=== PATIENT | female | born 1940 | race Caucasian/White ===

== ENCOUNTER 2021-03-11 06:59 | Observation (INO) | payer MEDICARE ==
[~2021-03-11] VITALS: Ht 167.6 cm; Wt 130.2 kg
[2021-03-11 07:25] LABS: BASOPHILS # (AUTO) 0.1 (0.0-0.1); BASOPHILS % 0.9 % (0.0-1.0); EOSINOPHILS # (AUTO) 0.2 (0.0-0.4); LYMPHOCYTES # (AUTO) 1.6 (1.0-3.2); LYMPHOCYTES % 27.1 % (18.0-39.1); MEAN CORPUSCULAR HEMOGLOBIN 25.8 pg (28-32); MEAN CORPUSCULAR HGB CONC 29.2 g/dL (31-35); MEAN CORPUSCULAR VOLUME 88.3 fL (81-99); MONOCYTES # (AUTO) 0.5 (0.2-0.8); NEUTROPHILS # (AUTO) 3.4 (2.1-6.9); NEUTROPHILS % 59.7 % (38.7-80.0); PLATELET COUNT 364 x10e3/uL (140-360); RED BLOOD COUNT 2.56 x10e6/uL (3.6-5.1); RED CELL DISTRIBUTION WIDTH 14.3 % (11.7-14.4)
[2021-03-11 07:28] LABS: HEMATOCRIT 22.6 % (34.2-44.1); HEMOGLOBIN 6.6 g/dL (12.0-16.0)
[2021-03-11 07:42] LABS: INR 0.89; PROTHROMBIN TIME 12.8 seconds (11.9-14.5)
[2021-03-11 07:54] LABS: ALBUMIN 3.7 g/dL (3.5-5.0); ALBUMIN/GLOBULIN RATIO 1.4 (0.8-2.0); ANION GAP 11.9 mmol/L (8-16); CALCIUM 8.4 mg/dL (8.4-10.2); CREATININE, SERUM 0.93 mg/dL (0.57-1.11); POTASSIUM 3.9 mmol/L (3.5-5.1)
[2021-03-11] MEDS ORDERED: SODIUM CHLORIDE 0.9% 250ML 250 ML IV ONE (08:15)
[2021-03-11] MEDS ORDERED: SODIUM CHLORIDE 0.9% 1000ML 1,000 ML IV SCH (08:15)
[2021-03-11] MEDS ORDERED: ONDANSETRON HCL INJ 2MG/ML 2ML 2 MG/ML VIAL IV PRN (08:15)
[2021-03-11] MEDS ORDERED: Morphine 4mg Syringe 4 MG/ML INJ IV PRN (08:15)
[2021-03-11 09:46] VITALS: BP 149/74
[2021-03-11 09:58] LABS: FERRITIN 5.2 ng/mL (4.63-204.00)
[2021-03-11 10:46] LABS: BAND NEUTROPHILS % (MANUAL) 1 %; EOSINOPHILS % (MANUAL) 2 % (0-7); LYMPHOCYTES % (MANUAL) 24 % (19-48); MONOCYTES % (MANUAL) 3 % (3.4-9.0); NEUTROPHILS % (MANUAL) 70 % (40-74)
[2021-03-11 10:47] LABS: PLATELET ESTIMATE ADEQUATE; PLATELET MORPHOLOGY COMMENT NORMAL; RBC MORPHOLOGY COMMENT NORMAL
[2021-03-11] MEDS ORDERED: LOSARTAN POTASS25 MG PO (11:18)
[2021-03-11] MEDS: IRON SUCROSE 100 MG in SODIUM CHLORIDE 0.9% 100 ML 100 ML IV SCH (11:18)
[2021-03-11] MEDS ORDERED: ALPRAZOLAM 0.25 MG TAB PO ONE (11:30)
[2021-03-11 11:32] VITALS: BP 138/65
[2021-03-11] MEDS ORDERED: ACETAMINOPHEN 325 MG TAB PO PRN (14:15)
[2021-03-11] MEDS: FAMOTIDINE 20 MG TAB PO SCH (15:44)
[2021-03-11 16:28] LABS: CLARITY,URINE CLOUDY (CLEAR); COLOR,URINE YELLOW (YELLOW); KETONES,URINE NEGATIVE (NEGATIVE); LEUKOCYTE ESTERASE ,URINE NEGATIVE (NEGATIVE); NITRITE,URINE NEGATIVE (NEGATIVE); PROTEIN,URINE DIPSTICK NEGATIVE (NEGATIVE); URINE UROBILINOGEN 0.2 mg/dL (0.2 - 1)
[2021-03-11 16:35] VITALS: BP 145/70
[2021-03-11 16:40] LABS: BACTERIA,URINE FEW /HPF; EPITHELIAL CELLS,URINE MANY /LPF; RBC,URINE 0-5 /HPF (0-5); WBC,URINE (MAN) 0-5 /HPF (0-5)
[2021-03-11 20:00] VITALS: BP 153/79
[2021-03-11] MEDS ORDERED: CEFTRIAXONE 1 GM in SODIUM CHLORIDE 0.9% 50ML 50 ML IV SCH (21:00)
[2021-03-11] MEDS ORDERED: SODIUM CHLORIDE 0.9% 250ML 250 ML ONE (21:42)
[2021-03-11 23:50] VITALS: BP 111/59
[2021-03-12 04:00] VITALS: BP 109/57
[2021-03-12 05:44] LABS: BASOPHILS # (AUTO) 0.1 (0.0-0.1); BASOPHILS % 1.1 % (0.0-1.0); EOSINOPHILS # (AUTO) 0.2 (0.0-0.4); EOSINOPHILS % 3.6 % (0.0-6.0); HEMATOCRIT 25.8 % (34.2-44.1); LYMPHOCYTES # (AUTO) 1.2 (1.0-3.2); LYMPHOCYTES % 25.7 % (18.0-39.1); MEAN CORPUSCULAR HEMOGLOBIN 26.9 pg (28-32); MEAN CORPUSCULAR VOLUME 86.9 fL (81-99); MONOCYTES # (AUTO) 0.5 (0.2-0.8); MONOCYTES % 9.9 % (4.4-11.3); NEUTROPHILS # (AUTO) 2.8 (2.1-6.9); NEUTROPHILS % 59.3 % (38.7-80.0); PLATELET COUNT 276 x10e3/uL (140-360); RED BLOOD COUNT 2.97 x10e6/uL (3.6-5.1); RED CELL DISTRIBUTION WIDTH 14.6 % (11.7-14.4)
[2021-03-12 06:01] LABS: ANION GAP 10.4 mmol/L (8-16); CALCIUM 7.9 mg/dL (8.4-10.2); CREATININE, SERUM 0.85 mg/dL (0.57-1.11); POTASSIUM 4.4 mmol/L (3.5-5.1)
[2021-03-12] MEDS: FAMOTIDINE 20 MG TAB PO SCH (07:30)
[2021-03-12 08:30] VITALS: BP 129/69
[2021-03-12 08:48] VITALS: BP 129/69
[2021-03-12] MEDS ORDERED: LOSARTAN POTASSIUM 25 MG TAB PO SCH (09:00)
[2021-03-12] MEDS: IRON SUCROSE 100 MG in SODIUM CHLORIDE 0.9% 100 ML 100 ML IV SCH (11:00)
[2021-03-12 12:46] VITALS: BP 141/77
[2021-03-12 13:02] VITALS: BP 141/77
[2021-03-12] MEDS ORDERED: FEROSUL325 MG PO (13:58)
[2021-03-12] MEDS ORDERED: PANTOPRAZOLE SO40 MG PO (13:58)
[2021-03-12] MEDS ORDERED: FENTANYL CITRATE/PF 100MCG/2 ML INJ ONE (14:01)
[2021-03-12] MEDS ORDERED: LIDOCAINE HCL 2% LOCAL INJ 5 ML SDV VIAL INJ ONE (14:04)
[2021-03-12] MEDS ORDERED: PROPOFOL IV EMULSION 10 MG/ML 20 ML VIAL ONE (14:04)
[2021-03-12] MEDS ORDERED: IRON SUCROSE 100 MG in SODIUM CHLORIDE 0.9% 100 ML 100 ML IV SCH (21:00)
== END 2021-03-12 14:55 | disposition home or self-care (01) ==
LOC: ER 07:05 → ERHOLD 08:07 → INTOOBSV 08:07 → MED/SURG 09:18
PROVIDERS: ADMIT Internal Medicine; ATTEND Internal Medicine
DX: K29.01 Acute gastritis with bleeding (principal); K20.91 Esophagitis, unspecified with bleeding; D62 Acute posthemorrhagic anemia; I10 Essential (primary) hypertension; N39.0 Urinary tract infection, site not specified; K44.9 Diaphragmatic hernia without obstruction or gangrene; K31.89 Other diseases of stomach and duodenum; Z20.822 Contact with and (suspected) exposure to COVID-19
CPT/HCPCS: 36415 ×2; 36430; 43239; 43450; 80048; 80053; 81001; 82607; 82728; 82746; 83540; 84466; 85025 ×2; 85045; 85610; 86850; 86900; 86920; 87086; 88305; 88312; 88342; 93005; 94799 ×2; 99283; C9113; G0378 ×2; J0696; J1756; J2001; J2270; J2405; J2704; J3010; J7050; P9016; U0002